=== PATIENT | male | born 1965 | race Two or more races ===

== ENCOUNTER 2017-12-05 09:47 | Observation (INO) | payer BC ==
[2017-12-05] MEDS ORDERED: diPHENhydraMINE PO* 25 MG ONE (10:59)
[2017-12-05] MEDS ORDERED: Diazepam TAB(*) 5 MG ONE (10:59)
[2017-12-05] MEDS ORDERED: fentaNYL* 50 MCG/ML 2 ML VIAL (100 MCG VIAL) ONE (11:29)
[2017-12-05] MEDS ORDERED: Heparin(*) 1000 UNIT/ML 10 ML VIAL CATH LAB IV ONE ×2 (11:29→12:15)
[2017-12-05] MEDS ORDERED: nitroGLYCERIN DRIP* 25,000 MCG/250 ML BTL ONE (11:30)
[2017-12-05] MEDS ORDERED: Heparin 2 UNITS/ML IVPREMIX* 2,000 ML IV ONE (11:30)
[2017-12-05] MEDS ORDERED: Lidocaine 1% INJ* 10 MG/ML 30 ML SDV ONE (11:31)
[2017-12-05] MEDS ORDERED: Iohexol 350 (CONTRAST) 200 ML MDV IV ONE (11:32)
[2017-12-05] MEDS ORDERED: VERAPAMIL 2.5 MG/ML 2 ML VIAL ** 5 mg/2 ml ONE (11:32)
[2017-12-05] MEDS ORDERED: Midazolam* 1 MG/ML 10 ML VIAL (10 MG) ONE (11:32)
[2017-12-05] MEDS ORDERED: Ticagrelor* 90 MG TAB PO ONE (12:43)
[2017-12-05] MEDS ORDERED: Eptifibatide IV (Load dose)(*) 2 MG/ML 10 ml VIAL ONE (13:09)
[2017-12-05] MEDS ORDERED: Nitroglycerin TAB 0.4 MG* 0.4 MG TAB SL PRN ×2 (13:35→13:41)
[2017-12-05] MEDS ORDERED: NS 0.9% 1000 ML* 1,000 ML IV SCH (13:45)
[2017-12-05] MEDS ORDERED: Atorvastatin* 80 MG TAB PO SCH (17:00)
[2017-12-05] MEDS: Metoprolol Tartrate TAB* 25 MG PO SCH (20:48)
[2017-12-05] MEDS: Ticagrelor* 90 MG TAB PO SCH (20:48)
--- NOTE | 2017-12-06 03:55 | CATH ---
CC: Dr. Penaloza * STENT REPORT: DATE OF PROCEDURE: 12/05/17 - ROOM #ICU-01 [employer] STRATEGIST: Dr. Penaloza. PROCEDURE: Stent placement LAD 3.0 x 20 Synergy drug-eluting stent, stent placement circumflex OM 2.75 x 12 Synergy drug-eluting stent. HISTORY: A 52-year-old male with unstable angina, recent stress echo demonstrated extensive anterior wall ischemia. Diagnostic catheterization by Dr. Penaloza demonstrated significant LAD and circumflex OM stenosis. I was asked to perform intervention. PROCEDURE ACCESS: Right radial artery sheath 6F slender placed by Dr. Penaloza. MEDICATIONS: For intervention: 1. Heparin 6000 units, 3000 units IV. 2. Double bolus IV Integrilin. 3. Brilinta 180 mg p.o. loading dose. GUIDING CATHETER: 6F VL 3.5, wire 14 BMW used to deploy a 3.0 x 20 Synergy drug - eluting stent in mid LAD, which was postdilated with a 3 x 20 noncompliant balloon to 18 atmospheres 30 seconds. Proximal edge stent area of lucency remained unchanged, there was no evidence of staining, slow flow, chest pain or EKG changes. He was given double bolus IV Integrilin with a plan to relook at the LAD site after circumflex OM intervention. The LAD and circumflex have separate ostia. The 3 x 20 NC balloon was positioned at the proximal area of lucency, inflated to low pressure of 4 atmospheres at 30 seconds without change. The same guide and wire were then used to deploy a 2.75 x 12 Synergy drug-eluting stent in the circumflex OM straddling the AV groove continuation, it was post dilated with a 2.75 x 12 NC balloon 18 atmospheres 30 seconds. ANGIOGRAPHY: For the diagnostic portion, see Dr. Penaloza's report. After stent implantation LAD, high pressure post dilatation as well as low pressure dilatation of the lucency at the proximal end of the stent, there is no residual stenosis, flow is ARELIS 3, he was asymptomatic without EKG changes, there is uniform mild lucency just proximal to the stent. There is no evidence of staining or dissection, this was treated with IV Integrilin as a possible short nonocclusive dissection. There was no staining to suggest thrombus. After circumflex OM stent placement, there is no residual stenosis, flow is ARELIS 3, there is mild spasm at the origin of the AV groove continuation of a very small posterolateral branch, which was not treated and was asymptomatic. CONCLUSION: Successful two-vessel stent placement, LAD proximal edge mild lucency, possible low risk dissection, treated with IV Integrilin as well as continued Brilinta. [id number]/[facility] #: [id number] [facility] CENTERMeredith
[2017-12-06 05:41] LABS: EGFR Non-African American 105.4 (>60)
--- NOTE | 2017-12-06 08:29 | CATH ---
Cc: Dr. Evans; Dr. Monzon CARDIAC CATHETERIZATION: DATE OF PROCEDURE: 12/05/17 PROCEDURES: Cardiac catheterization including left wrist catheterization coronary angiography. INDICATION: Unstable angina and abnormal stress test. The patient is a 52-year-old gentleman with a history of smoking, family history of coronary artery d isease who is having crescendo angina. The patient underwent a stress echocardiogram last week. At that time, he exercised for 6 minutes, he had severe chest pain, he had [address] segment depression . His stress echocardiogram showed severe akinesis to the anterior and lateral and apical goff. Th is was a high risk stress test, cardiac catheterization was recommended. The patient was recently diagnosed with a right upper lung mass. He underwent a CAT scan last week a nd compared to a chest x-ray in 2010 and was determined to be benign. DESCRIPTION OF PROCEDURE: The patient was brought to procedure room in a fasting state. Informed co nsent had been obtained prior to the procedure. All labs were reviewed. The patient's right wrist w as prepped and draped in usual fashion, 1% lidocaine was used for local anesthesia. Using a Seldinge r technique, the right radial artery was entered and a guidewire was placed, over the guidewire a 6-F rench hydrophilic sheath was placed. The patient underwent coronary angiography using a TIG 6-B[place] catheter. The patient tolerated the procedure well with no complication. The patient ultimately we nt on to stenting to his LAD and circumflex. Please see Dr. Monzon report for those details. A tota l of 2.5 minutes of fluoro time was used with total of 45 mL of contrast was used. The patient also received an arterial cocktail including 3000 heparin, 300 mcg of nitroglycerin and verapamil. FINDINGS: 1. Left main artery: Left main was very short, in reality, it was probably a dual ostial system. There was no evidence of stenosis. 2. Left anterior descending artery: The LAD was normal in size. It had 3 diagonal vessels. The mi d LAD after the first small diagonal showed a 95% stenosis. The remainder of the vessel was without disease. 3. Left circumflex artery: The circumflex artery was normal in size. It gave off one obtuse margin al branch. The circumflex itself was not diseased. The obtuse marginal had a 95% stenosis at its mi d vessel. 4. Right coronary artery: The RCA was a large dominant vessel giving out the PDA, there was a mid 2 0% stenosis to the right coronary artery. The remainder of the vessel was without disease. IMPRESSION: 1. Two-vessel coronary artery disease. 2. 90% stenosis to the LAD. 3. 90% stenosis to the left circumflex artery. RECOMMENDATION: The patient will undergo stenting to the LAD and circumflex by Dr. Monzon. [id number]/[facility] [place] #: [id number]
[2017-12-06] MEDS: Ticagrelor* 90 MG TAB PO SCH (08:40)
[2017-12-06] MEDS ORDERED: Aspirin 81 mg CHEW TAB* 81 MG TAB.CHEW PO SCH (09:00)
[2017-12-06] MEDS: Metoprolol Tartrate TAB* 25 MG PO SCH (10:35)
[2017-12-06 11:03] VITALS: BP 119/62
--- NOTE | 2017-12-07 07:16 | DS ---
CC: Dr. Evans; Dr. Monzon* DISCHARGE SUMMARY: DATE OF ADMISSION: 12/05/17 DATE OF DISCHARGE: 12/06/17 HISTORY: Please see my admission history and physical for details of the presentation. The patient is a 52-year-old gentleman, who is having crescendo angina. His stress echocardiogram was markedly abnormal with a high-risk profile. The patient exercised for only 4 minutes and had chest pain and [address]-segment depression. His echo images show severe hypokinesis to akinesis of his anterior and lateral goff consistent with ischemia. The patient was recommended for cardiac catheterization. The patient did have an abnormal chest x-ray with a mass in his right upper lobe. On further evaluation with CAT scan and reviewing old x-rays, it was felt to be highly benign. SUMMARY OF HOSPITAL COURSE: The patient was brought to the cardiac catheterization lab in a fasting state. The patient underwent catheterization through the right wrist. His catheterization showed critical disease to his OM1 vessel off his left circumflex artery and critical disease to his mid LAD. The patient underwent drug-eluting stenting to both of these vessels. At this point, I do not have sizes and lengths of those stents. The patient was observed overnight and had no problems overnight. PHYSICAL EXAMINATION: This morning, on physical exam, vital signs were normal. Cardiac Exam: S1, S2 without any murmurs, rubs, or gallops. Lungs are clear to auscultation. Extremities show no edema. His right wrist has minimal ecchymosis with normal pulses. DISCHARGE MEDICATIONS: 1. Aspirin 81 mg a day. 2. Lipitor 80 mg a day. 3. Metoprolol tartrate 25 mg b.i.d. 4. Nitroglycerin sublingual p.r.n. 5. Brilinta 90 mg b.i.d. FOLLOWUP: The patient will follow up with me in [address] Evans in 3 weeks. The patient is to continue all his medications. [id number]/[facility] #: [id number] NIS[place]
== END 2017-12-06 12:05 | disposition home or self-care (01) ==
LOC: CHICATH 09:47 → ICU 13:35
PROVIDERS: ADMIT Specialist; ATTEND Specialist
DX: R07.9 Chest pain, unspecified (principal); R94.30 Abnormal result of cardiovascular function study, unspecified; I20.0 Unstable angina; Z79.82 Long term (current) use of aspirin; I25.10 Atherosclerotic heart disease of native coronary artery without angina pectoris; Z87.891 Personal history of nicotine dependence; Z95.5 Presence of coronary angioplasty implant and graft
CPT/HCPCS: 36415; 80048; 87641; 93005; 93454; 99156; 99157; A9270-GY; C1725; C1769; C1876; C1887; C9600-LD; C9601-LC; G0378; J1327; J1644; J2250; J3010